=== PATIENT | male | born 1950 | race Caucasian/White ===

== ENCOUNTER 2024-02-02 21:23 | Inpatient (IN) | payer MEDICARE, OTHER ==
[~2024-02-02] VITALS: Ht 165.1 cm; Wt 49.9 kg
[2024-02-02] MEDS ORDERED: RISP1TAB7 PO ×2 (21:53)
[2024-02-02] MEDS ORDERED: MELA3CAP2 PO (21:53)
[2024-02-02] MEDS ORDERED: AMLO-212 PO (21:53)
[2024-02-02] MEDS ORDERED: BENZ0.5T43 PO (21:53)
[2024-02-02] MEDS ORDERED: NA P133E RC (21:53)
[2024-02-02] MEDS ORDERED: MULT-225 PO (21:53)
[2024-02-02] MEDS ORDERED: MAGN400O6 PO (21:53)
[2024-02-02] MEDS ORDERED: PSYL0.4C2 PO (21:53)
[2024-02-02] MEDS ORDERED: DOCU240C26 PO (21:53)
[2024-02-02] MEDS ORDERED: VIT1CAPS44 PO (21:53)
[2024-02-02] MEDS ORDERED: BISA10SU61 RC (21:53)
[2024-02-02] MEDS ORDERED: LACT10SO58 PO (21:53)
[2024-02-02] MEDS ORDERED: ASCO500C18 PO (21:53)
[2024-02-02] MEDS ORDERED: OMEG100037 PO (21:53)
[2024-02-02] MEDS ORDERED: CYAN100020 SL (21:53)
[2024-02-02] MEDS ORDERED: GUAI474L3 PO (21:53)
[2024-02-02] MEDS ORDERED: TRIA60LO7 TP (21:53)
[2024-02-02] MEDS ORDERED: ACET-2605 PO (21:53)
[2024-02-02] MEDS ORDERED: ACET325C7 PO (21:53)
[2024-02-02] MEDS ORDERED: LATA2.5D15 EACHEYE (21:53)
[2024-02-02] MEDS ORDERED: IVER3TAB2 PO (21:53)
[2024-02-02] MEDS ORDERED: DIVA500T4 PO (21:53)
[2024-02-02 22:04] LABS: BASOPHILS % (AUTO) 0.6 % (0.0-2.0); EOSINOPHILS # (AUTO) 0.8 K/uL (0.0-0.7); HEMATOCRIT 33.5 % (36.7-47.1); HEMOGLOBIN 11.1 g/dL (12.5-16.3); LYMPHOCYTES # (AUTO) 2.1 K/uL (0.8-4.8); LYMPHOCYTES % (AUTO) 26.5 % (20.5-51.5); MEAN CORPUSCULAR HEMOGLOBIN 31.3 uug (23.8-33.4); MEAN CORPUSCULAR HGB CONC 33 g/dL (32.5-36.3); MEAN CORPUSCULAR VOLUME 94.3 fL (73.0-96.2); MONOCYTES # (AUTO) 0.5 K/uL (0.1-1.30); MONOCYTES % (AUTO) 6.7 % (0.0-11.0); NEUTROPHILS # (AUTO) 4.4 K/uL (1.8-8.9); NEUTROPHILS % (AUTO) 56.2 % (38.5-71.5); PLATELET COUNT (AUTO) 207 K/uL (152-348); RED BLOOD CELL COUNT(AUTO) 3.55 MIL/uL (4.06-5.63); RED CELL DISTRIBUTION WIDTH 13.5 % (12.1-16.2); WHITE BLOOD COUNT (AUTO) 7.9 K/uL (3.6-10.2)
[2024-02-02 22:08] LABS: DIFFERENTIAL COMMENT 1
[2024-02-02 22:13] LABS: CALCIUM 8.6 mg/dL (8.5-10.1); CARBON DIOXIDE 30 mmol/L (21-32); CHLORIDE 104 mmol/L (98-107); GLUCOSE 94 mg/dL (74-106); POTASSIUM 3.9 mmol/L (3.5-5.1); SODIUM SERUM 138 mmol/L (136-145); UREA NITROGEN, BLOOD 25 mg/dL (7-18)
[2024-02-02 22:28] LABS: ALANINE AMINOTRANSFERASE 12 U/L (16-63); ALBUMIN 2.5 g/dL (3.4-5.0); ALKALINE PHOSPHATASE 71 U/L (50-136); ASPARTATE AMINOTRANSFERASE 10 U/L (15-37); BILIRUBIN,TOTAL 0.4 mg/dL (0.2-1.0); NT-PRO BNP 138 pg/mL (0-125); TOTAL PROTEIN, SERUM 6.2 g/dL (6.4-8.2)
[2024-02-02] MEDS ORDERED: LORAZEPAM 2 MG/1 ML VIAL ONE (23:07)
[2024-02-02] MEDS: LORAZEPAM 2 MG/1 ML VIAL IV ONE (23:16)
[2024-02-03] MEDS ORDERED: BISACODYL 10 MG SUPP.RECT RC PRN (01:15)
[2024-02-03] MEDS ORDERED: REMEDY ESSENTIAL ZINC PASTE 113 GM TP PRN (01:30)
[2024-02-03] MEDS ORDERED: ONDANSETRON 4 MG/2 ML VIAL IV PRN (01:30)
[2024-02-03] MEDS ORDERED: MAGNESIUM HYDROXIDE 30 ML LIQUID UDC PO PRN (01:30)
[2024-02-03] MEDS ORDERED: ACETAMINOPHEN 325 MG TABLET PO PRN (01:30)
[2024-02-03] MEDS: IV NS 1000 ML 1,000 ML IV ONE (02:35)
[2024-02-03 04:00] VITALS: BP 138/72; TEMP 97.5; O2SAT 98
[2024-02-03] MEDS: IV NS 1000 ML 1,000 ML IV SCH (04:09)
[2024-02-03 07:03] LABS: CALCIUM 8.3 mg/dL (8.5-10.1); CARBON DIOXIDE 28 mmol/L (21-32); CHLORIDE 104 mmol/L (98-107); CREATININE 0.8 mg/dL (0.6-1.3); GLUCOSE 79 mg/dL (74-106); SODIUM SERUM 138 mmol/L (136-145); UREA NITROGEN, BLOOD 16 mg/dL (7-18)
[2024-02-03 07:19] LABS: BASOPHILS # (AUTO) 0.1 K/UL (0.0-0.2); BASOPHILS % (AUTO) 0.8 % (0.0-2.0); EOSINOPHILS # (AUTO) 0.8 K/uL (0.0-0.7); EOSINOPHILS % (AUTO) 12.4 % (0.0-7.0); HEMATOCRIT 33.9 % (36.7-47.1); HEMOGLOBIN 11.6 g/dL (12.5-16.3); LYMPHOCYTES % (AUTO) 32.2 % (20.5-51.5); MEAN CORPUSCULAR HEMOGLOBIN 32.2 uug (23.8-33.4); MEAN CORPUSCULAR HGB CONC 34 g/dL (32.5-36.3); MEAN CORPUSCULAR VOLUME 93.8 fL (73.0-96.2); MONOCYTES # (AUTO) 0.5 K/uL (0.1-1.30); NEUTROPHILS # (AUTO) 2.9 K/uL (1.8-8.9); NEUTROPHILS % (AUTO) 46.6 % (38.5-71.5); PLATELET COUNT (AUTO) 210 K/uL (152-348); RED BLOOD CELL COUNT(AUTO) 3.61 MIL/uL (4.06-5.63); RED CELL DISTRIBUTION WIDTH 13.5 % (12.1-16.2); WHITE BLOOD COUNT (AUTO) 6.3 K/uL (3.6-10.2)
[2024-02-03 07:26] LABS: POTASSIUM 3.6 mmol/L (3.5-5.1)
[2024-02-03] MEDS: BENZTROPINE MESYLATE 0.5 MG TABLET PO SCH (08:46)
[2024-02-03] MEDS: MULTIVITAMINS,THERAPEUTIC TABLET PO SCH (08:46)
[2024-02-03] MEDS: risperiDONE 1 MG TABLET PO SCH ×2 (08:46→17:05)
[2024-02-03] MEDS: ASCORBIC ACID 500 MG TABLET PO SCH (08:46)
[2024-02-03] MEDS: AMLODIPINE 5 MG TABLET PO SCH (08:47)
[2024-02-03] MEDS: DOCUSATE SODIUM 250 MG CAPSULE PO SCH (08:53)
[2024-02-03] MEDS ORDERED: [UNRECOGNIZED DRUG - OTHER] PO SCH (09:00)
[2024-02-03] MEDS ORDERED: Medication Not On Formulary EA (Vit C/E/Zn/Coppr/Lutein/Zeaxan (Preservision Areds 2 Sof PO SCH (09:00)
[2024-02-03] MEDS ORDERED: DHA PO SCH (09:00)
[2024-02-03] MEDS ORDERED: DOCUSATE CALCIUM PO SCH (09:00)
[2024-02-03] MEDS ORDERED: EPA PO SCH (09:00)
[2024-02-03] MEDS ORDERED: PSYLLIUM HUSK PO SCH (09:00)
[2024-02-03] MEDS ORDERED: FISH OIL PO SCH (09:00)
[2024-02-03] MEDS ORDERED: OMEGA PO SCH (09:00)
[2024-02-03] MEDS ORDERED: ACET-2154 PO (10:23)
[2024-02-03] MEDS ORDERED: TRIA15OI11 TP (10:23)
[2024-02-03] MEDS ORDERED: DIVA125T2 PO ×2 (10:23)
[2024-02-03] MEDS ORDERED: CYAN-51 PO (10:23)
[2024-02-03] MEDS ORDERED: LACTULOSE 20 G/30 ML LIQUID UDC PO PRN (10:30)
[2024-02-03 11:38] VITALS: BP 90/49; TEMP 97.4; O2SAT 95
[2024-02-03 16:03] VITALS: BP 94/52; TEMP 97.6; O2SAT 96
[2024-02-03] MEDS: PSYLLIUM SEED PACKET PO SCH (17:00)
[2024-02-03] MEDS ORDERED: LATANOPROST OPHT DROP 2.5 ML BOTTLE EACHEYE SCH (18:00)
[2024-02-03 20:21] VITALS: BP 108/56; TEMP 97.6; O2SAT 97
[2024-02-03] MEDS ORDERED: DIVALPROEX ER 500 MG TAB.SR.24H PO SCH ×2 (21:00)
[2024-02-03] MEDS: MELATONIN 3 MG TABLET PO SCH (21:03)
[2024-02-03] MEDS: DIVALPROEX 125 MG TABLET.DR PO SCH (21:03)
[2024-02-03] MEDS: LATANOPROST OPHT DROP 2.5 ML BOTTLE EACHEYE SCH (21:05)
[2024-02-04 05:28] VITALS: BP 137/80; TEMP 97.6; O2SAT 96
[2024-02-04 07:16] LABS: BASOPHILS # (AUTO) 0.1 K/UL (0.0-0.2); BASOPHILS % (AUTO) 0.8 % (0.0-2.0); EOSINOPHILS # (AUTO) 0.5 K/uL (0.0-0.7); EOSINOPHILS % (AUTO) 7.6 % (0.0-7.0); HEMATOCRIT 36.1 % (36.7-47.1); HEMOGLOBIN 12.1 g/dL (12.5-16.3); LYMPHOCYTES # (AUTO) 1.8 K/uL (0.8-4.8); MEAN CORPUSCULAR HEMOGLOBIN 31.6 uug (23.8-33.4); MEAN CORPUSCULAR HGB CONC 34 g/dL (32.5-36.3); MEAN CORPUSCULAR VOLUME 93.9 fL (73.0-96.2); MONOCYTES # (AUTO) 0.5 K/uL (0.1-1.30); MONOCYTES % (AUTO) 7.8 % (0.0-11.0); NEUTROPHILS # (AUTO) 3.7 K/uL (1.8-8.9); NEUTROPHILS % (AUTO) 56.8 % (38.5-71.5); PLATELET COUNT (AUTO) 217 K/uL (152-348); RED BLOOD CELL COUNT(AUTO) 3.84 MIL/uL (4.06-5.63); RED CELL DISTRIBUTION WIDTH 13.7 % (12.1-16.2); WHITE BLOOD COUNT (AUTO) 6.6 K/uL (3.6-10.2)
[2024-02-04 07:20] LABS: DIFFERENTIAL COMMENT 1
[2024-02-04 07:36] LABS: MAGNESIUM 1.8 mg/dL (1.8-2.4); PHOSPHOROUS 2.7 mg/dL (2.5-4.9)
[2024-02-04 07:56] LABS: CALCIUM 7.7 mg/dL (8.5-10.1); CARBON DIOXIDE 31 mmol/L (21-32); CHLORIDE 105 mmol/L (98-107); CREATININE 0.8 mg/dL (0.6-1.3); GLUCOSE 98 mg/dL (74-106); SODIUM SERUM 139 mmol/L (136-145); UREA NITROGEN, BLOOD 13 mg/dL (7-18)
[2024-02-04] MEDS: OMEGA-3 FATTY ACIDS/FISH OIL CAPSULE PO SCH (08:22)
[2024-02-04] MEDS: CYANOCOBALAMIN 1,000 MCG TABLET PO SCH (08:23)
[2024-02-04] MEDS: BETA CAROTENE/VIT C & E/MIN TABLET PO SCH (08:23)
[2024-02-04] MEDS: DIVALPROEX 125 MG TABLET.DR PO SCH (08:23)
[2024-02-04] MEDS: TRIAMCINOLONE ACET 0.1% OINT 15 GM TUBE TP SCH (08:38)
[2024-02-04 12:00] VITALS: BP 125/65; TEMP 97.6; O2SAT 97
[2024-02-04] MEDS: MEDIHONEY= THERAHONEY 1.5 OZ TUBE TOP SCH (12:45)
[2024-02-04 16:43] VITALS: BP 131/78; TEMP 98.2; O2SAT 98
[2024-02-04] MEDS: ARGININE/GLUTAMINE/CALCIUM BMB 1 EACH POWD.PACK PO SCH (17:12)
[2024-02-04 20:10] VITALS: BP 120/57; TEMP 98.2; O2SAT 91
[2024-02-05 04:30] VITALS: BP 130/64; TEMP 97.3; O2SAT 99
[2024-02-05 06:38] LABS: BASOPHILS # (AUTO) 0.1 K/UL (0.0-0.2); BASOPHILS % (AUTO) 0.7 % (0.0-2.0); EOSINOPHILS # (AUTO) 0.8 K/uL (0.0-0.7); HEMATOCRIT 35.3 % (36.7-47.1); HEMOGLOBIN 11.8 g/dL (12.5-16.3); LYMPHOCYTES # (AUTO) 2.2 K/uL (0.8-4.8); LYMPHOCYTES % (AUTO) 22.6 % (20.5-51.5); MEAN CORPUSCULAR HEMOGLOBIN 31.5 uug (23.8-33.4); MEAN CORPUSCULAR HGB CONC 34 g/dL (32.5-36.3); MEAN CORPUSCULAR VOLUME 93.8 fL (73.0-96.2); MONOCYTES # (AUTO) 0.7 K/uL (0.1-1.30); MONOCYTES % (AUTO) 7.1 % (0.0-11.0); NEUTROPHILS # (AUTO) 5.9 K/uL (1.8-8.9); NEUTROPHILS % (AUTO) 61.6 % (38.5-71.5); PLATELET COUNT (AUTO) 210 K/uL (152-348); RED BLOOD CELL COUNT(AUTO) 3.76 MIL/uL (4.06-5.63); RED CELL DISTRIBUTION WIDTH 13.1 % (12.1-16.2); WHITE BLOOD COUNT (AUTO) 9.5 K/uL (3.6-10.2)
[2024-02-05 06:44] LABS: DIFFERENTIAL COMMENT 1
[2024-02-05 06:50] LABS: CALCIUM 8.7 mg/dL (8.5-10.1); CARBON DIOXIDE 31 mmol/L (21-32); CHLORIDE 106 mmol/L (98-107); GLUCOSE 111 mg/dL (74-106); POTASSIUM 4.4 mmol/L (3.5-5.1); SODIUM SERUM 139 mmol/L (136-145); UREA NITROGEN, BLOOD 27 mg/dL (7-18)
[2024-02-05 11:54] VITALS: BP 116/63; TEMP 97.8; O2SAT 98
[2024-02-05 15:55] VITALS: BP 106/56; TEMP 97.6; O2SAT 97
[2024-02-05 19:00] VITALS: BP 100/54; TEMP 98.3; O2SAT 93
[2024-02-06 06:00] VITALS: BP 112/62; TEMP 97.9; O2SAT 100
[2024-02-06 06:30] LABS: BASOPHILS # (AUTO) 0.1 K/UL (0.0-0.2); BASOPHILS % (AUTO) 0.8 % (0.0-2.0); EOSINOPHILS # (AUTO) 0.9 K/uL (0.0-0.7); HEMATOCRIT 31.2 % (36.7-47.1); HEMOGLOBIN 10.8 g/dL (12.5-16.3); LYMPHOCYTES # (AUTO) 2.3 K/uL (0.8-4.8); LYMPHOCYTES % (AUTO) 27.4 % (20.5-51.5); MEAN CORPUSCULAR HEMOGLOBIN 32.4 uug (23.8-33.4); MEAN CORPUSCULAR HGB CONC 35 g/dL (32.5-36.3); MEAN CORPUSCULAR VOLUME 93.5 fL (73.0-96.2); MONOCYTES # (AUTO) 0.6 K/uL (0.1-1.30); MONOCYTES % (AUTO) 6.5 % (0.0-11.0); NEUTROPHILS # (AUTO) 4.7 K/uL (1.8-8.9); NEUTROPHILS % (AUTO) 55.3 % (38.5-71.5); PLATELET COUNT (AUTO) 190 K/uL (152-348); RED BLOOD CELL COUNT(AUTO) 3.33 MIL/uL (4.06-5.63); RED CELL DISTRIBUTION WIDTH 13.5 % (12.1-16.2); WHITE BLOOD COUNT (AUTO) 8.5 K/uL (3.6-10.2)
[2024-02-06 06:37] LABS: CALCIUM 8.4 mg/dL (8.5-10.1); CARBON DIOXIDE 30 mmol/L (21-32); CHLORIDE 107 mmol/L (98-107); GLUCOSE 91 mg/dL (74-106); POTASSIUM 4.2 mmol/L (3.5-5.1); SODIUM SERUM 139 mmol/L (136-145); UREA NITROGEN, BLOOD 35 mg/dL (7-18)
[2024-02-06 06:44] LABS: DIFFERENTIAL COMMENT 1
[2024-02-06 11:46] VITALS: BP 101/51; TEMP 97.7; O2SAT 97
== END 2024-02-06 15:15 | DRG 604 ==
LOC: ER 21:27 → MEDSURG3 02-03 01:00
DX: S00.83XA Contusion of other part of head, initial encounter (principal); L89.123 Pressure ulcer of left upper back, stage 3; L89.223 Pressure ulcer of left hip, stage 3; F03.93 Unspecified dementia, unspecified severity, with mood disturbance; W18.30XA Fall on same level, unspecified, initial encounter; G40.909 Epilepsy, unspecified, not intractable, without status epilepticus; E86.0 Dehydration; Y92.129 Unspecified place in nursing home as the place of occurrence of the external cause; H40.9 Unspecified glaucoma; K59.00 Constipation, unspecified; N20.0 Calculus of kidney; I10 Essential (primary) hypertension; R13.19 Other dysphagia; Z79.899 Other long term (current) drug therapy; M62.81 Muscle weakness (generalized); Z86.19 Personal history of other infectious and parasitic diseases; Z78.1 Physical restraint status; R13.10 Dysphagia, unspecified
CPT/HCPCS: 36415; 70450; 71045; 83735; 84100; 84484; 85025; 93307; A4663; A6209; A6213; G0378; J2060; J7040

== ENCOUNTER 2024-04-28 14:28 | Inpatient (IN) | payer MEDICARE, OTHER, MEDICAID ==
[~2024-04-28] VITALS: Ht 167.6 cm; Wt 56.8 kg
[~2024-04-28 14:28] MED LIST: ACET-2154 PO; ACET-2605 PO; ACET325C7 PO; AMLO-212 PO; ASCO500C18 PO; BENZ0.5T43 PO; BISA10SU61 RC; CYAN-51 PO; DIVA125T2 PO; DOCU240C26 PO; GUAI474L3 PO; IVER3TAB2 PO; LACT10SO58 PO; LATA2.5D15 EACHEYE; MAGN400O6 PO; MELA3CAP2 PO; MULT-225 PO; NA P133E RC; OMEG100037 PO; PSYL0.4C2 PO; RISP1TAB7 PO; TRIA15OI11 TP; VIT1CAPS44 PO
[2024-04-28] MEDS ORDERED: AMIN30LI45 PO (15:08)
[2024-04-28] MEDS ORDERED: [UNRECOGNIZED DRUG - CODE] PO (15:08)
[2024-04-28] MEDS ORDERED: CALC-764 PO (15:08)
[2024-04-28] MEDS ORDERED: HYDR-4354 PO (15:09)
[2024-04-28] MEDS ORDERED: ZINC50TA2 PO (15:09)
[2024-04-28 15:14] LABS: BASOPHILS % (AUTO) 0.2 % (0.0-2.0); EOSINOPHILS # (AUTO) 0.1 K/uL (0.0-0.7); EOSINOPHILS % (AUTO) 0.8 % (0.0-7.0); HEMATOCRIT 28.9 % (36.7-47.1); HEMOGLOBIN 9.5 g/dL (12.5-16.3); LYMPHOCYTES % (AUTO) 12.4 % (20.5-51.5); MEAN CORPUSCULAR HGB CONC 33 g/dL (32.5-36.3); MEAN CORPUSCULAR VOLUME 87.8 fL (73.0-96.2); MONOCYTES # (AUTO) 1.2 K/uL (0.1-1.30); NEUTROPHILS # (AUTO) 13.1 K/uL (1.8-8.9); NEUTROPHILS % (AUTO) 79.6 % (38.5-71.5); PLATELET COUNT (AUTO) 456 K/uL (152-348); RED BLOOD CELL COUNT(AUTO) 3.29 MIL/uL (4.06-5.63); RED CELL DISTRIBUTION WIDTH 14.3 % (12.1-16.2); WHITE BLOOD COUNT (AUTO) 16.4 K/uL (3.6-10.2)
[2024-04-28 15:17] LABS: DIFFERENTIAL COMMENT 1
[2024-04-28 15:22] LABS: CALCIUM 8.3 mg/dL (8.5-10.1); CARBON DIOXIDE 28 mmol/L (21-32); CHLORIDE 109 mmol/L (98-107); GLUCOSE 125 mg/dL (74-106); POTASSIUM 4.3 mmol/L (3.5-5.1); SODIUM SERUM 145 mmol/L (136-145); UREA NITROGEN, BLOOD 21 mg/dL (7-18)
[2024-04-28] MEDS: IV NORMAL SALINE 1000 ML BAG IV ONE (15:30)
[2024-04-28 15:37] LABS: ALANINE AMINOTRANSFERASE 10 U/L (16-63); ALBUMIN 1.5 g/dL (3.4-5.0); ALKALINE PHOSPHATASE 123 U/L (50-136); ASPARTATE AMINOTRANSFERASE 14 U/L (15-37); BILIRUBIN,DIRECT 0.1 mg/dL (0.0-0.2); BILIRUBIN,TOTAL 0.4 mg/dL (0.2-1.0); NT-PRO BNP 565 pg/mL (0-125); TOTAL PROTEIN, SERUM 6.3 g/dL (6.4-8.2)
[2024-04-28] MEDS ORDERED: CEFTRIAXONE /D5W 50ML IVPB **ER PYXIS IV ONE (16:27)
[2024-04-28] MEDS: CEFTRIAXONE 1 G in IV DEXTROSE 5% 50 ML IV ONE (16:32)
[2024-04-28] MEDS ORDERED: levoFLOXacin 500 MG/D5W 100 ML ONE (17:04)
[2024-04-28] MEDS: levoFLOXacin 500 MG/D5W 100ML PIGGYBACK IV ONE (17:09)
[2024-04-28] MEDS ORDERED: ONDANSETRON 4 MG/2 ML VIAL IV PRN (18:00)
[2024-04-28] MEDS: HYDROCODONE/APAP 10-325 MG TABLET PO SCH (18:00)
[2024-04-28] MEDS ORDERED: MAGNESIUM HYDROXIDE 30 ML LIQUID UDC PO PRN (18:00)
[2024-04-28] MEDS ORDERED: REMEDY ESSENTIAL ZINC PASTE 113 GM TP PRN (18:00)
[2024-04-28 18:01] LABS: *BILIRUBIN,URIN NEGATIVE (NEGATIVE); *CLARITY,URINE CLEAR (CLEAR); *COLOR,URINE YELLOW (YELLOW); *KETONES,URINE NEGATIVE (NEGATIVE); *PROTEIN,URINE NEGATIVE (NEGATIVE); LEUKOCYTE ESTERASE ,URINE NEGATIVE (NEGATIVE); NITRITE, URINE NEGATIVE (NEGATIVE); PH,URINE 7.5 (5.0-8.0); UGLUCOSE NEGATIVE (NEGATIVE)
[2024-04-28 18:12] LABS: *BLOOD, URINE TRACE (NEGATIVE)
[2024-04-28 18:15] LABS: BACTERIA,URINE NONE SEEN /HPF (NONE SEEN); RBC,URINE 0-3 /HPF (0-3); SQUAMOUS EPITHELIAL CELL,UR FEW /HPF (NONE SEEN); WBC,URINE 0-3 /HPF (0-3)
[2024-04-28] MEDS ORDERED: LACTULOSE 20 G/30 ML LIQUID UDC PO PRN (19:30)
[2024-04-28 22:53] VITALS: BP 144/77; TEMP 98.6; O2SAT 97
[2024-04-28] MEDS ORDERED: CEFEPIME HCL 1 G VIAL ONE (23:14)
[2024-04-28] MEDS ORDERED: VANCOMYCIN IV 200 ML ONE (23:15)
[2024-04-28] MEDS: LATANOPROST OPHT DROP 2.5 ML BOTTLE EACHEYE SCH (23:29)
[2024-04-28] MEDS: CEFEPIME HCL IV SCH (23:31)
[2024-04-28] MEDS: IV NS 1000 ML 1,000 ML IV PRN (23:31)
[2024-04-28] MEDS: DEXTROSE 5% IV SCH (23:31)
[2024-04-29] MEDS: DIVALPROEX 125 MG TABLET.DR PO SCH ×2 (00:19→12:34)
[2024-04-29] MEDS: DOCUSATE SODIUM 250 MG CAPSULE PO SCH (00:20)
[2024-04-29] MEDS: risperiDONE 1 MG TABLET PO SCH ×2 (00:22→08:28)
[2024-04-29] MEDS: MELATONIN 3 MG TABLET PO SCH (00:22)
[2024-04-29] MEDS: VANCOMYCIN IV 1,000 MG in IV DEXTROSE 5% 250 ML IV ONE (00:27)
[2024-04-29] MEDS ORDERED: LATANOPROST OPHT DROP 2.5 ML BOTTLE EACHEYE SCH (05:21)
[2024-04-29 06:00] VITALS: BP 142/75; TEMP 98.7; O2SAT 95
[2024-04-29] MEDS ORDERED: LACTULOSE 20 G/30 ML LIQUID UDC PO PRN (06:38)
[2024-04-29 06:53] LABS: BASOPHILS # (AUTO) 0.1 K/UL (0.0-0.2); BASOPHILS % (AUTO) 0.3 % (0.0-2.0); EOSINOPHILS # (AUTO) 0.1 K/uL (0.0-0.7); EOSINOPHILS % (AUTO) 0.5 % (0.0-7.0); HEMATOCRIT 28.9 % (36.7-47.1); HEMOGLOBIN 9.4 g/dL (12.5-16.3); LYMPHOCYTES # (AUTO) 1.3 K/uL (0.8-4.8); LYMPHOCYTES % (AUTO) 7.3 % (20.5-51.5); MEAN CORPUSCULAR HEMOGLOBIN 28.4 uug (23.8-33.4); MEAN CORPUSCULAR HGB CONC 32 g/dL (32.5-36.3); MEAN CORPUSCULAR VOLUME 87.7 fL (73.0-96.2); MONOCYTES # (AUTO) 1.4 K/uL (0.1-1.30); MONOCYTES % (AUTO) 7.7 % (0.0-11.0); NEUTROPHILS # (AUTO) 15.4 K/uL (1.8-8.9); NEUTROPHILS % (AUTO) 84.2 % (38.5-71.5); PLATELET COUNT (AUTO) 473 K/uL (152-348); RED CELL DISTRIBUTION WIDTH 14.6 % (12.1-16.2); WHITE BLOOD COUNT (AUTO) 18.3 K/uL (3.6-10.2)
[2024-04-29 07:23] LABS: DIFFERENTIAL COMMENT 1
[2024-04-29 07:28] LABS: ALANINE AMINOTRANSFERASE 7 U/L (16-63); ALBUMIN 1.5 g/dL (3.4-5.0); ALKALINE PHOSPHATASE 123 U/L (50-136); ASPARTATE AMINOTRANSFERASE 15 U/L (15-37); BILIRUBIN,TOTAL 0.6 mg/dL (0.2-1.0); CALCIUM 8.2 mg/dL (8.5-10.1); CARBON DIOXIDE 26 mmol/L (21-32); CHLORIDE 110 mmol/L (98-107); CREATININE 0.9 mg/dL (0.6-1.3); GLUCOSE 85 mg/dL (74-106); PHOSPHOROUS 3.3 mg/dL (2.5-4.9); POTASSIUM 3.9 mmol/L (3.5-5.1); SODIUM SERUM 145 mmol/L (136-145); TOTAL PROTEIN, SERUM 6.4 g/dL (6.4-8.2); UREA NITROGEN, BLOOD 16 mg/dL (7-18)
[2024-04-29] MEDS: ZINC SULFATE 220 MG CAPSULE PO SCH (08:27)
[2024-04-29] MEDS: CYANOCOBALAMIN 1,000 MCG TABLET PO SCH (08:27)
[2024-04-29] MEDS: BENZTROPINE MESYLATE 0.5 MG TABLET PO SCH (08:27)
[2024-04-29] MEDS: MULTIVITAMINS,THERAPEUTIC TABLET PO SCH (08:27)
[2024-04-29] MEDS: ASCORBIC ACID 500 MG TABLET PO SCH (08:27)
[2024-04-29] MEDS: CALCIUM CARB/VITAMIN D 500MG-200UNITS TABLET PO SCH (08:27)
[2024-04-29] MEDS: AMLODIPINE 5 MG TABLET PO SCH (08:27)
[2024-04-29] MEDS ORDERED: OMEGA PO SCH (09:00)
[2024-04-29] MEDS ORDERED: FISH OIL PO SCH (09:00)
[2024-04-29] MEDS ORDERED: [UNRECOGNIZED DRUG - OTHER] PO SCH (09:00)
[2024-04-29] MEDS ORDERED: DHA PO SCH (09:00)
[2024-04-29] MEDS ORDERED: EPA PO SCH (09:00)
[2024-04-29] MEDS: PSYLLIUM SEED PACKET PO SCH (09:06)
[2024-04-29] MEDS: CEFEPIME HCL 2 GM in IV DEXTROSE 5% 100 ML IV SCH (11:20)
[2024-04-29] MEDS ORDERED: HYDR-4209 PO (11:34)
[2024-04-29] MEDS ORDERED: PANT40TA49 PO (11:34)
[2024-04-29] MEDS ORDERED: DOCU-141 PO (11:34)
[2024-04-29] MEDS ORDERED: MAGN400T40 PO (11:34)
[2024-04-29 11:39] VITALS: BP 100/52; TEMP 97.7; O2SAT 97
[2024-04-29] MEDS: OMEGA-3 FATTY ACIDS/FISH OIL CAPSULE PO SCH (12:34)
[2024-04-29] MEDS: IV NS 1000 ML 1,000 ML IV PRN (13:33)
[2024-04-29 15:42] VITALS: BP 100/52; TEMP 97.7; O2SAT 96
[2024-04-29] MEDS: VANCOMYCIN IV 1,000 MG in IV DEXTROSE 5% 250 ML IV SCH (17:08)
[2024-04-29 19:30] VITALS: BP 130/57; TEMP 98.1; O2SAT 97
[2024-04-29] MEDS: LATANOPROST OPHT DROP 2.5 ML BOTTLE EACHEYE SCH (20:44)
[2024-04-30 06:00] VITALS: BP 118/66; TEMP 98.7; O2SAT 97
[2024-04-30 06:38] LABS: BASOPHILS # (AUTO) 0.2 K/UL (0.0-0.2); EOSINOPHILS # (AUTO) 0.1 K/uL (0.0-0.7); EOSINOPHILS % (AUTO) 0.5 % (0.0-7.0); HEMATOCRIT 28.7 % (36.7-47.1); HEMOGLOBIN 9.6 g/dL (12.5-16.3); LYMPHOCYTES # (AUTO) 1.5 K/uL (0.8-4.8); MEAN CORPUSCULAR HEMOGLOBIN 29.3 uug (23.8-33.4); MEAN CORPUSCULAR HGB CONC 33 g/dL (32.5-36.3); MEAN CORPUSCULAR VOLUME 87.8 fL (73.0-96.2); MONOCYTES % (AUTO) 6.1 % (0.0-11.0); NEUTROPHILS % (AUTO) 83.4 % (38.5-71.5); PLATELET COUNT (AUTO) 498 K/uL (152-348); RED BLOOD CELL COUNT(AUTO) 3.28 MIL/uL (4.06-5.63); RED CELL DISTRIBUTION WIDTH 14.6 % (12.1-16.2); WHITE BLOOD COUNT (AUTO) 16.8 K/uL (3.6-10.2)
[2024-04-30 06:42] LABS: CALCIUM 8.4 mg/dL (8.5-10.1); CARBON DIOXIDE 27 mmol/L (21-32); CHLORIDE 110 mmol/L (98-107); CREATININE 0.9 mg/dL (0.6-1.3); GLUCOSE 93 mg/dL (74-106); POTASSIUM 4.1 mmol/L (3.5-5.1); SODIUM SERUM 145 mmol/L (136-145); UREA NITROGEN, BLOOD 12 mg/dL (7-18)
[2024-04-30 08:28] LABS: DIFFERENTIAL COMMENT 1
[2024-04-30] MEDS: PANTOPRAZOLE SODIUM 40 MG VIAL IV SCH (08:44)
[2024-04-30] MEDS: HYDROCODONE/APAP 5-325MG TABLET PO PRN (09:52)
[2024-04-30] MEDS ORDERED: CEFTRIAXONE 2 G VIAL IM SCH (10:45)
[2024-04-30] MEDS: CEFTRIAXONE 2 G in IV DEXTROSE 5% 100 ML IV SCH (12:51)
[2024-04-30 13:10] VITALS: BP 123/62; TEMP 97.2; O2SAT 98
[2024-04-30 15:11] LABS: HIV-1 p24 ANTIGEN NON REACTIVE (NONREACTIVE); HIV-1/2 ANTIBODY NON REACTIVE (NONREACTIVE)
[2024-04-30 15:55] VITALS: BP 111/66; TEMP 97.6; O2SAT 97
[2024-04-30 20:00] VITALS: BP 126/71; TEMP 98.6; O2SAT 99
[2024-05-01 04:00] VITALS: BP 146/73; TEMP 98.4; O2SAT 96
[2024-05-01 05:28] LABS: BASOPHILS # (AUTO) 0.1 K/UL (0.0-0.2); BASOPHILS % (AUTO) 0.6 % (0.0-2.0); EOSINOPHILS # (AUTO) 0.1 K/uL (0.0-0.7); EOSINOPHILS % (AUTO) 0.4 % (0.0-7.0); HEMATOCRIT 28.2 % (36.7-47.1); HEMOGLOBIN 9.3 g/dL (12.5-16.3); LYMPHOCYTES # (AUTO) 1.1 K/uL (0.8-4.8); MEAN CORPUSCULAR HEMOGLOBIN 28.9 uug (23.8-33.4); MEAN CORPUSCULAR HGB CONC 33 g/dL (32.5-36.3); MEAN CORPUSCULAR VOLUME 87.5 fL (73.0-96.2); MONOCYTES # (AUTO) 1.2 K/uL (0.1-1.30); MONOCYTES % (AUTO) 5.7 % (0.0-11.0); NEUTROPHILS # (AUTO) 19.2 K/uL (1.8-8.9); NEUTROPHILS % (AUTO) 88.3 % (38.5-71.5); PLATELET COUNT (AUTO) 534 K/uL (152-348); RED BLOOD CELL COUNT(AUTO) 3.22 MIL/uL (4.06-5.63); RED CELL DISTRIBUTION WIDTH 14.5 % (12.1-16.2); WHITE BLOOD COUNT (AUTO) 21.7 K/uL (3.6-10.2)
[2024-05-01 05:30] LABS: DIFFERENTIAL COMMENT 1
[2024-05-01 05:34] LABS: CALCIUM 8.3 mg/dL (8.5-10.1); CARBON DIOXIDE 26 mmol/L (21-32); CHLORIDE 107 mmol/L (98-107); CREATININE 0.9 mg/dL (0.6-1.3); GLUCOSE 101 mg/dL (74-106); SODIUM SERUM 141 mmol/L (136-145); UREA NITROGEN, BLOOD 13 mg/dL (7-18)
[2024-05-01 08:06] LABS: HEPATITIS B CORE AB, TOTAL Negative (Negative); HEPATITIS B SURFACE AG Negative (Negative); HEPATITIS C VIRUS ANTIBODY Non Reactive (Non Reactive)
[2024-05-01 12:30] VITALS: BP 128/52; TEMP 99; O2SAT 98
[2024-05-01 19:00] VITALS: BP 131/65; TEMP 98.2; O2SAT 98
[2024-05-02 06:00] VITALS: BP 131/66; TEMP 98.3; O2SAT 100
[2024-05-02 07:26] LABS: BASOPHILS # (AUTO) 0.3 K/UL (0.0-0.2); BASOPHILS % (AUTO) 1.3 % (0.0-2.0); EOSINOPHILS # (AUTO) 0.2 K/uL (0.0-0.7); EOSINOPHILS % (AUTO) 0.8 % (0.0-7.0); HEMATOCRIT 28.4 % (36.7-47.1); HEMOGLOBIN 9.5 g/dL (12.5-16.3); LYMPHOCYTES # (AUTO) 1.3 K/uL (0.8-4.8); LYMPHOCYTES % (AUTO) 6.4 % (20.5-51.5); MEAN CORPUSCULAR HEMOGLOBIN 29.5 uug (23.8-33.4); MEAN CORPUSCULAR HGB CONC 34 g/dL (32.5-36.3); MEAN CORPUSCULAR VOLUME 87.8 fL (73.0-96.2); MONOCYTES # (AUTO) 1.1 K/uL (0.1-1.30); MONOCYTES % (AUTO) 5.6 % (0.0-11.0); NEUTROPHILS # (AUTO) 16.8 K/uL (1.8-8.9); NEUTROPHILS % (AUTO) 85.9 % (38.5-71.5); PLATELET COUNT (AUTO) 530 K/uL (152-348); RED BLOOD CELL COUNT(AUTO) 3.24 MIL/uL (4.06-5.63); RED CELL DISTRIBUTION WIDTH 14.8 % (12.1-16.2); WHITE BLOOD COUNT (AUTO) 19.6 K/uL (3.6-10.2)
[2024-05-02 07:43] LABS: DIFFERENTIAL COMMENT 1
[2024-05-02 07:53] LABS: CALCIUM 8.4 mg/dL (8.5-10.1); CARBON DIOXIDE 26 mmol/L (21-32); CHLORIDE 108 mmol/L (98-107); CREATININE 0.8 mg/dL (0.6-1.3); GLUCOSE 94 mg/dL (74-106); POTASSIUM 3.3 mmol/L (3.5-5.1); SODIUM SERUM 143 mmol/L (136-145); UREA NITROGEN, BLOOD 11 mg/dL (7-18)
[2024-05-02] MEDS: POTASSIUM CHLORIDE 50 ML IV SCH (09:18)
[2024-05-02] MEDS ORDERED: JEVITY 1.2 1000 ML LIQUID GT PRN (10:45)
[2024-05-02 11:50] VITALS: BP 123/74; TEMP 98; O2SAT 97
[2024-05-02 15:28] VITALS: BP 139/59; TEMP 97.8; O2SAT 97
[2024-05-02 19:30] VITALS: BP 111/64; TEMP 97; O2SAT 96
[2024-05-03 04:20] VITALS: BP 116/70; TEMP 97.2; O2SAT 94
[2024-05-03 07:02] LABS: BASOPHILS # (AUTO) 0.2 K/UL (0.0-0.2); BASOPHILS % (AUTO) 1.1 % (0.0-2.0); EOSINOPHILS # (AUTO) 0.2 K/uL (0.0-0.7); EOSINOPHILS % (AUTO) 1.2 % (0.0-7.0); HEMATOCRIT 27.2 % (36.7-47.1); HEMOGLOBIN 9.2 g/dL (12.5-16.3); LYMPHOCYTES # (AUTO) 1.7 K/uL (0.8-4.8); LYMPHOCYTES % (AUTO) 9.7 % (20.5-51.5); MEAN CORPUSCULAR HEMOGLOBIN 29.7 uug (23.8-33.4); MEAN CORPUSCULAR HGB CONC 34 g/dL (32.5-36.3); MEAN CORPUSCULAR VOLUME 87.8 fL (73.0-96.2); MONOCYTES # (AUTO) 0.9 K/uL (0.1-1.30); MONOCYTES % (AUTO) 5.3 % (0.0-11.0); NEUTROPHILS # (AUTO) 14.1 K/uL (1.8-8.9); NEUTROPHILS % (AUTO) 82.7 % (38.5-71.5); PLATELET COUNT (AUTO) 573 K/uL (152-348); RED CELL DISTRIBUTION WIDTH 14.4 % (12.1-16.2)
[2024-05-03] MEDS: PANTOPRAZOLE ORAL SUSPENSION 40 MG SUSPDR.PKT PO SCH (07:04)
[2024-05-03 07:22] LABS: CALCIUM 8.2 mg/dL (8.5-10.1); CARBON DIOXIDE 28 mmol/L (21-32); CHLORIDE 113 mmol/L (98-107); CREATININE 0.8 mg/dL (0.6-1.3); DIFFERENTIAL COMMENT 1; GLUCOSE 104 mg/dL (74-106); POTASSIUM 3.4 mmol/L (3.5-5.1); SODIUM SERUM 147 mmol/L (136-145); UREA NITROGEN, BLOOD 15 mg/dL (7-18)
[2024-05-03] MEDS: POTASSIUM CHLORIDE 20 MEQ POWDER PACKET PO ONE (11:06)
[2024-05-03 11:33] VITALS: BP 104/63; TEMP 97.9; O2SAT 92
[2024-05-03 15:42] VITALS: BP 139/67; TEMP 98.8; O2SAT 95
[2024-05-03 21:06] VITALS: TEMP 98.5
[2024-05-04 04:00] VITALS: TEMP 98.4
[2024-05-04 05:31] LABS: BASOPHILS # (AUTO) 0.1 K/UL (0.0-0.2); BASOPHILS % (AUTO) 0.4 % (0.0-2.0); EOSINOPHILS # (AUTO) 0.2 K/uL (0.0-0.7); EOSINOPHILS % (AUTO) 1.5 % (0.0-7.0); HEMATOCRIT 24.6 % (36.7-47.1); HEMOGLOBIN 8.3 g/dL (12.5-16.3); LYMPHOCYTES # (AUTO) 2.3 K/uL (0.8-4.8); LYMPHOCYTES % (AUTO) 14.4 % (20.5-51.5); MEAN CORPUSCULAR HEMOGLOBIN 29.2 uug (23.8-33.4); MEAN CORPUSCULAR HGB CONC 34 g/dL (32.5-36.3); MEAN CORPUSCULAR VOLUME 86.9 fL (73.0-96.2); MONOCYTES # (AUTO) 0.9 K/uL (0.1-1.30); MONOCYTES % (AUTO) 5.9 % (0.0-11.0); NEUTROPHILS # (AUTO) 12.3 K/uL (1.8-8.9); NEUTROPHILS % (AUTO) 77.8 % (38.5-71.5); PLATELET COUNT (AUTO) 470 K/uL (152-348); RED BLOOD CELL COUNT(AUTO) 2.84 MIL/uL (4.06-5.63); RED CELL DISTRIBUTION WIDTH 14.6 % (12.1-16.2); WHITE BLOOD COUNT (AUTO) 15.7 K/uL (3.6-10.2)
[2024-05-04 05:57] LABS: DIFFERENTIAL COMMENT 1
[2024-05-04 06:20] LABS: CALCIUM 7.6 mg/dL (8.5-10.1); CARBON DIOXIDE 29 mmol/L (21-32); CHLORIDE 110 mmol/L (98-107); CREATININE 0.8 mg/dL (0.6-1.3); GLUCOSE 101 mg/dL (74-106); POTASSIUM 3.2 mmol/L (3.5-5.1); SODIUM SERUM 143 mmol/L (136-145); UREA NITROGEN, BLOOD 14 mg/dL (7-18); VANCOMYCIN,TROUGH 16.7 ug/mL (10.0-20.0)
[2024-05-04] MEDS: POTASSIUM CHLORIDE 20 MEQ POWDER PACKET PO ONE (09:51)
[2024-05-04 10:55] VITALS: BP 104/51; TEMP 98.3; O2SAT 97
[2024-05-04 15:11] VITALS: BP 124/59; TEMP 98.2; O2SAT 96
[2024-05-04 19:00] VITALS: BP 117/61; TEMP 97.8; O2SAT 96
[2024-05-05 06:00] VITALS: BP 122/72; TEMP 98.1; O2SAT 96
[2024-05-05 07:34] LABS: BASOPHILS # (AUTO) 0.1 K/UL (0.0-0.2); BASOPHILS % (AUTO) 0.6 % (0.0-2.0); EOSINOPHILS # (AUTO) 0.5 K/uL (0.0-0.7); HEMATOCRIT 24.7 % (36.7-47.1); HEMOGLOBIN 8.6 g/dL (12.5-16.3); LYMPHOCYTES % (AUTO) 12.7 % (20.5-51.5); MEAN CORPUSCULAR HEMOGLOBIN 30.3 uug (23.8-33.4); MEAN CORPUSCULAR HGB CONC 35 g/dL (32.5-36.3); MEAN CORPUSCULAR VOLUME 86.7 fL (73.0-96.2); MONOCYTES # (AUTO) 0.9 K/uL (0.1-1.30); MONOCYTES % (AUTO) 5.6 % (0.0-11.0); NEUTROPHILS # (AUTO) 12.4 K/uL (1.8-8.9); NEUTROPHILS % (AUTO) 78.1 % (38.5-71.5); PLATELET COUNT (AUTO) 520 K/uL (152-348); RED BLOOD CELL COUNT(AUTO) 2.85 MIL/uL (4.06-5.63); RED CELL DISTRIBUTION WIDTH 14.8 % (12.1-16.2); WHITE BLOOD COUNT (AUTO) 15.9 K/uL (3.6-10.2)
[2024-05-05 07:45] LABS: CARBON DIOXIDE 29 mmol/L (21-32); CHLORIDE 106 mmol/L (98-107); CREATININE 0.9 mg/dL (0.6-1.3); GLUCOSE 89 mg/dL (74-106); POTASSIUM 3.6 mmol/L (3.5-5.1); SODIUM SERUM 140 mmol/L (136-145); UREA NITROGEN, BLOOD 12 mg/dL (7-18)
[2024-05-05 07:48] LABS: DIFFERENTIAL COMMENT 1
[2024-05-05 10:56] VITALS: BP 113/57; TEMP 98.2; O2SAT 95
[2024-05-05 15:02] VITALS: BP 114/55; TEMP 98.4; O2SAT 99
[2024-05-05 19:00] VITALS: BP 148/57; TEMP 98.8; O2SAT 96
[2024-05-06 06:00] VITALS: BP 103/58; TEMP 97.9; O2SAT 98
[2024-05-06 07:59] LABS: BASOPHILS # (AUTO) 0.1 K/UL (0.0-0.2); BASOPHILS % (AUTO) 0.8 % (0.0-2.0); EOSINOPHILS # (AUTO) 0.4 K/uL (0.0-0.7); EOSINOPHILS % (AUTO) 2.7 % (0.0-7.0); HEMATOCRIT 25.6 % (36.7-47.1); HEMOGLOBIN 8.6 g/dL (12.5-16.3); LYMPHOCYTES # (AUTO) 1.9 K/uL (0.8-4.8); LYMPHOCYTES % (AUTO) 11.5 % (20.5-51.5); MEAN CORPUSCULAR HEMOGLOBIN 29.1 uug (23.8-33.4); MEAN CORPUSCULAR HGB CONC 34 g/dL (32.5-36.3); MEAN CORPUSCULAR VOLUME 86.8 fL (73.0-96.2); MONOCYTES # (AUTO) 0.8 K/uL (0.1-1.30); MONOCYTES % (AUTO) 4.9 % (0.0-11.0); NEUTROPHILS % (AUTO) 80.1 % (38.5-71.5); PLATELET COUNT (AUTO) 487 K/uL (152-348); RED BLOOD CELL COUNT(AUTO) 2.94 MIL/uL (4.06-5.63); RED CELL DISTRIBUTION WIDTH 14.5 % (12.1-16.2); WHITE BLOOD COUNT (AUTO) 16.2 K/uL (3.6-10.2)
[2024-05-06 08:24] LABS: DIFFERENTIAL COMMENT 1
[2024-05-06 08:36] LABS: CARBON DIOXIDE 29 mmol/L (21-32); CHLORIDE 107 mmol/L (98-107); CREATININE 0.9 mg/dL (0.6-1.3); GLUCOSE 86 mg/dL (74-106); MAGNESIUM 1.9 mg/dL (1.8-2.4); PHOSPHOROUS 3.9 mg/dL (2.5-4.9); POTASSIUM 3.6 mmol/L (3.5-5.1); SODIUM SERUM 141 mmol/L (136-145); UREA NITROGEN, BLOOD 13 mg/dL (7-18)
[2024-05-06 11:39] VITALS: BP 100/53; TEMP 97.9; O2SAT 98
[2024-05-06 16:00] VITALS: BP 102/57; TEMP 97.8; O2SAT 97
[2024-05-06 19:30] VITALS: BP 140/48; TEMP 99.9; O2SAT 95
[2024-05-06] MEDS: ACETAMINOPHEN 325 MG TABLET PO PRN (20:49)
[2024-05-07 06:30] VITALS: BP 97/53; TEMP 98.5; O2SAT 96
[2024-05-07 06:55] LABS: BASOPHILS # (AUTO) 0.1 K/UL (0.0-0.2); BASOPHILS % (AUTO) 0.5 % (0.0-2.0); EOSINOPHILS # (AUTO) 0.5 K/uL (0.0-0.7); EOSINOPHILS % (AUTO) 3.3 % (0.0-7.0); HEMATOCRIT 22.9 % (36.7-47.1); HEMOGLOBIN 7.6 g/dL (12.5-16.3); LYMPHOCYTES # (AUTO) 1.4 K/uL (0.8-4.8); LYMPHOCYTES % (AUTO) 9.4 % (20.5-51.5); MEAN CORPUSCULAR HEMOGLOBIN 28.8 uug (23.8-33.4); MEAN CORPUSCULAR HGB CONC 33 g/dL (32.5-36.3); MEAN CORPUSCULAR VOLUME 86.3 fL (73.0-96.2); MONOCYTES # (AUTO) 0.5 K/uL (0.1-1.30); MONOCYTES % (AUTO) 3.7 % (0.0-11.0); NEUTROPHILS % (AUTO) 83.1 % (38.5-71.5); PLATELET COUNT (AUTO) 443 K/uL (152-348); RED BLOOD CELL COUNT(AUTO) 2.65 MIL/uL (4.06-5.63); RED CELL DISTRIBUTION WIDTH 14.7 % (12.1-16.2); WHITE BLOOD COUNT (AUTO) 14.4 K/uL (3.6-10.2)
[2024-05-07 07:06] LABS: DIFFERENTIAL COMMENT 1
[2024-05-07 07:12] LABS: CALCIUM 8.1 mg/dL (8.5-10.1); CARBON DIOXIDE 28 mmol/L (21-32); CHLORIDE 111 mmol/L (98-107); CREATININE 0.8 mg/dL (0.6-1.3); GLUCOSE 93 mg/dL (74-106); MAGNESIUM 1.9 mg/dL (1.8-2.4); PHOSPHOROUS 3.1 mg/dL (2.5-4.9); POTASSIUM 3.7 mmol/L (3.5-5.1); SODIUM SERUM 146 mmol/L (136-145); UREA NITROGEN, BLOOD 13 mg/dL (7-18)
[2024-05-07 11:56] VITALS: BP 114/55; TEMP 98.4; O2SAT 99
[2024-05-07 16:00] VITALS: BP 118/60; TEMP 97.9; O2SAT 98
[2024-05-07 19:30] VITALS: BP 122/59; TEMP 98.9; O2SAT 95
[2024-05-08 02:12] VITALS: BP 122/59; TEMP 98.9; O2SAT 95
[2024-05-08 06:08] VITALS: BP 124/67; TEMP 98.7; O2SAT 97
[2024-05-08 07:39] LABS: BASOPHILS # (AUTO) 0.1 K/UL (0.0-0.2); BASOPHILS % (AUTO) 0.8 % (0.0-2.0); EOSINOPHILS # (AUTO) 0.4 K/uL (0.0-0.7); EOSINOPHILS % (AUTO) 3.7 % (0.0-7.0); HEMATOCRIT 23.7 % (36.7-47.1); HEMOGLOBIN 8.1 g/dL (12.5-16.3); LYMPHOCYTES # (AUTO) 1.8 K/uL (0.8-4.8); LYMPHOCYTES % (AUTO) 17.2 % (20.5-51.5); MEAN CORPUSCULAR HEMOGLOBIN 29.3 uug (23.8-33.4); MEAN CORPUSCULAR HGB CONC 34 g/dL (32.5-36.3); MEAN CORPUSCULAR VOLUME 85.9 fL (73.0-96.2); MONOCYTES # (AUTO) 0.6 K/uL (0.1-1.30); MONOCYTES % (AUTO) 5.6 % (0.0-11.0); NEUTROPHILS # (AUTO) 7.4 K/uL (1.8-8.9); NEUTROPHILS % (AUTO) 72.7 % (38.5-71.5); PLATELET COUNT (AUTO) 421 K/uL (152-348); RED BLOOD CELL COUNT(AUTO) 2.76 MIL/uL (4.06-5.63); RED CELL DISTRIBUTION WIDTH 14.9 % (12.1-16.2); WHITE BLOOD COUNT (AUTO) 10.2 K/uL (3.6-10.2)
[2024-05-08 07:48] LABS: DIFFERENTIAL COMMENT 1
[2024-05-08 07:58] LABS: CALCIUM 7.8 mg/dL (8.5-10.1); CARBON DIOXIDE 26 mmol/L (21-32); CHLORIDE 111 mmol/L (98-107); CREATININE 0.8 mg/dL (0.6-1.3); GLUCOSE 95 mg/dL (74-106); MAGNESIUM 1.9 mg/dL (1.8-2.4); PHOSPHOROUS 2.9 mg/dL (2.5-4.9); POTASSIUM 3.4 mmol/L (3.5-5.1); SODIUM SERUM 146 mmol/L (136-145); UREA NITROGEN, BLOOD 14 mg/dL (7-18)
[2024-05-08 11:35] VITALS: BP 140/69; TEMP 97.9; O2SAT 99
[2024-05-08] MEDS: POTASSIUM CHLORIDE 20 MEQ POWDER PACKET PO ONE (11:49)
[2024-05-08] MEDS: IV D5W 1000ML 1,000 ML IV SCH (12:25)
[2024-05-08] MEDS ORDERED: DOXY-326 PO (12:57)
[2024-05-08] MEDS ORDERED: AMOX-430 PO (12:57)
== END 2024-05-08 14:10 | DRG 871 ==
LOC: ER 14:28 → MEDSURG3 19:06
PROVIDERS: ADMIT Nurse Practitioner Acute Care; ATTEND Nurse Practitioner Acute Care
DX: A41.59 Other Gram-negative sepsis (principal); E43 Unspecified severe protein-calorie malnutrition; G93.41 Metabolic encephalopathy; I96 Gangrene, not elsewhere classified; L03.116 Cellulitis of left lower limb; M86.8X7 Other osteomyelitis, ankle and foot; F02.83 Dementia in other diseases classified elsewhere, unspecified severity, with mood disturbance; L98.428 Non-pressure chronic ulcer of back with other specified severity; D68.59 Other primary thrombophilia; F02.82 Dementia in other diseases classified elsewhere, unspecified severity, with psychotic disturbance; R65.20 Severe sepsis without septic shock; G40.909 Epilepsy, unspecified, not intractable, without status epilepticus; E88.09 Other disorders of plasma-protein metabolism, not elsewhere classified; L89.620 Pressure ulcer of left heel, unstageable; M81.0 Age-related osteoporosis without current pathological fracture; H40.9 Unspecified glaucoma; G30.9 Alzheimer's disease, unspecified; I73.9 Peripheral vascular disease, unspecified; K21.9 Gastro-esophageal reflux disease without esophagitis; I10 Essential (primary) hypertension; M62.462 Contracture of muscle, left lower leg; G47.00 Insomnia, unspecified; R79.89 Other specified abnormal findings of blood chemistry; Z74.01 Bed confinement status; R13.10 Dysphagia, unspecified; Z86.19 Personal history of other infectious and parasitic diseases; Z91.81 History of falling; Z79.899 Other long term (current) drug therapy; Z87.442 Personal history of urinary calculi; Z87.820 Personal history of traumatic brain injury; Z53.09 Procedure and treatment not carried out because of other contraindication; G62.9 Polyneuropathy, unspecified; M15.9 Polyosteoarthritis, unspecified
CPT/HCPCS: 36415; 71045; 73630; 73721; 83605; 83735; 84100; 85025; 85651; 86140; 86704; 86803; 87040; 87340; 87806; A4606; A4663; A6209; A6213; G0378; J0692; J0696; J1956; J2470; J3370; J3480; J7040; J7050; J7070